=== PATIENT | male | born 1970 | race Caucasian/White ===

== ENCOUNTER 2023-05-15 16:43 | Emergency (ER) | payer OTHER ==
[~2023-05-15] VITALS: Ht 172.7 cm; Wt 163.3 kg
[2023-05-15 17:00] VITALS: BP 155/88; PULSE 102; RESP 18; TEMP 98; O2SAT 99
[2023-05-15] MEDS ORDERED: methocarbamoL 500 MG TAB PO ONE (17:20)
[2023-05-15] MEDS ORDERED: KETOROLAC 60 MG/2 ML VIAL IM ONE (17:20)
[2023-05-15] MEDS ORDERED: METH-1681 PO (18:43)
[2023-05-15] MEDS ORDERED: LID5T TP (18:43)
[2023-05-15 19:02] VITALS: BP 101/65; PULSE 79; RESP 18; TEMP 98; O2SAT 99
== END 2023-05-15 19:10 | disposition home or self-care (01) ==
LOC: MED 16:43
DX: S39.012A Strain of muscle, fascia and tendon of lower back, initial encounter (principal); E11.9 Type 2 diabetes mellitus without complications; Z79.4 Long term (current) use of insulin; Z79.899 Other long term (current) drug therapy; V49.88XA Car occupant (driver) (passenger) injured in other specified transport accidents, initial encounter; Y93.89 Activity, other specified; Y92.89 Other specified places as the place of occurrence of the external cause; Y99.8 Other external cause status
CPT/HCPCS: 72110; 96372; 99283; J1885